=== PATIENT | male | born 1960 | race Caucasian/White ===

== ENCOUNTER 2020-03-24 08:46 | Day surgery (SDC) | payer BC ==
[2020-03-24] MEDS ORDERED: Propofol 200 MG/20 ML SDV IV ONE (08:47)
[2020-03-24] MEDS ORDERED: Midazolam 1 MG/ML 2 ML SDV IV ONE (08:47)
[2020-03-24] MEDS ORDERED: Midazolam 1 MG/ML 2 ML SDV ONE (08:54)
[2020-03-24] MEDS ORDERED: Propofol 200 MG/20 ML SDV ONE (08:54)
[2020-03-24] MEDS ORDERED: Sodium Chloride 0.9% 10 ML Syringe FLUSH PRN (09:00)
[2020-03-24] MEDS ORDERED: Lactated Ringers 1,000 ML IV SCH (09:00)
--- NOTE | 2020-03-24 09:52 | PCM.PN ---
- General Info Date of Service: 03/24/20 - Review of Systems Systems Review Comment:: 59-year-old male here for colonoscopy. His last colonoscopy was about 5 years ago. There is a report that the patient had polyps in the colon at that time. He denies any recent change in bowel pattern or rectal bleeding. I have reviewed his recent history and physical and no significant changes are noted. He is medically stable to proceed today. I have discussed the proposed colonoscopy with the patient. Risks such as but not limited to bleeding and GI injury reviewed. He agrees to proceed. - Patient Data Vitals - Most Recent: Last Vital Signs Temp Pulse 50 L 03/24/20 08:55 Resp 18 03/24/20 08:55 BP 127/75 03/24/20 08:55 Pulse Ox 97 03/24/20 08:55 Weight - Most Recent: 88.451 kg Med Orders - Current: Current Medications Lactated Ringer's (Ringers, Lactated) 1,000 mls @ 50 mls/hr IV ASDIRECTED TAL Sodium Chloride (Saline Flush) 10 ml FLUSH Q8HR PRN PRN Reason: keep vein open Sepsis Event Note - Focused Exam Vital Signs: Vital Signs Pulse Resp BP Pulse Ox 03/24/20 08:55 50 L 18 127/75 97 - Problem List Review Problem List Initiated/Reviewed/Updated: Yes - My Orders Last 24 Hours: My Active Orders 03/23/20 13:19 Resuscitation Status Routine 03/24/20 Breakfast Nothing Per Oral Diet [DIET] 03/24/20 09:00 Peripheral IV Care [RC] . DIRECTED Lactated Ringers [Ringers, Lactated] 1,000 ml IV ASDIRECTED Sodium Chloride 0.9% [Saline Flush] 10 ml FLUSH Q8HR PRN Peripheral IV Insertion Adult [OM.PC] Routine 03/24/20 10:00 Verify Patient Consent Obtain [RC] ASDIRECTED - Assessment Assessment:: History of colon polyps - Plan Plan:: Colonoscopy
--- NOTE | 2020-03-24 10:24 | PCM.OPNOTE ---
- General Post-Op/Procedure Note Date of Surgery/Procedure: 03/24/20 Operative Procedure(s): Colonoscopy with polypectomy Findings: Small Cecal Polyp Moderate Sigmoid Diverticulosis Pre Op Diagnosis: History of colon polyps Post-Op Diagnosis: Colon Polyp. Sigmoid Diverticulosis Anesthesia Technique: MAC Primary Surgeon: Hipolito Weinberg Pathology: Cecal Polyp EBL in mLs: 2 Complications: None Condition: Good
[2020-03-24 10:43] VITALS: BP 104/70; PULSE 53
--- NOTE | 2020-03-24 13:55 | OR ---
DATE OF SURGERY: 03/24/2020 SURGEON: Hipolito Weinberg MD PREOPERATIVE DIAGNOSIS: History of colon polyps. POSTOPERATIVE DIAGNOSIS: Colon polyp and sigmoid diverticulosis. OPERATION PERFORMED: Colonoscopy with polypectomy. INDICATIONS FOR SURGERY: This 59-year-old male has a known history of colon polyps. He comes today for surveillance colonoscopy. FINDINGS: A single small polyp was noted today in the cecum. This was 4 mm in diameter and sessile in configuration. The patient also has a [id number] degree of diverticulosis in the sigmoid region. The diverticula do not appear to be acutely inflamed or otherwise complicated. The remainder of the colon and rectum appear normal. DESCRIPTION OF PROCEDURE: The patient was taken to the operating room. He was given intravenous sedation and with him in the left lateral decubitus position, digital rectal exam was performed showing no rectal masses. The Olympus colonoscope was inserted into the rectum. Retroflexed examination of the rectal canal is performed. The scope was then carefully advanced under direct visualization through the entire length of the colon until the cecum is reached. Cecal acquisition is confirmed by noting normal internal cecal anatomy including the appendiceal orifice and the ileocecal valve. In the cecum, the above- described polyp was identified. It is removed grossly in its entirety with multiple bites of the biopsy forceps. After thoroughly examining the cecum, the scope was slowly withdrawn sequentially re-examining the colonic segments until the entire colon and rectum had been fully examined. The scope was removed and the patient was taken from the operating room in satisfactory condition. ESTIMATED BLOOD LOSS: 2 mL. COMPLICATIONS: None. PROGNOSIS: Good. /[id number]/MODL
== END 2020-03-24 12:00 | disposition home or self-care (01) ==
LOC: KA.SDS 08:46
PROVIDERS: ATTEND Surgery
DX: Z12.11 Encounter for screening for malignant neoplasm of colon (principal); D12.0 Benign neoplasm of cecum; K57.30 Diverticulosis of large intestine without perforation or abscess without bleeding; M77.02 Medial epicondylitis, left elbow; Z86.010 Personal history of colon polyps; Z98.890 Other specified postprocedural states
CPT/HCPCS: 00812; J2250; J2704

== ENCOUNTER 2022-03-08 07:57 | Day surgery (SDC) | payer BC ==
[2022-03-08] MEDS ORDERED: Rocuronium 50 MG/5 ML Vial IV ONE (07:58)
[2022-03-08] MEDS ORDERED: Succinylcholine 200 MG/10 ML MDV IV ONE (07:58)
[2022-03-08] MEDS ORDERED: Glycopyrrolate 0.2 MG/ML SDV IM ONE (07:58)
[2022-03-08] MEDS ORDERED: Ondansetron 4 MG/2 ML SDV IM ONE (07:58)
[2022-03-08] MEDS ORDERED: Lactated Ringers 1,000 ML IV SCH (08:00)
[2022-03-08] MEDS ORDERED: Sodium Chloride 0.9% 10 ML Syringe FLUSH PRN (08:00)
[2022-03-08] MEDS ORDERED: Bupivacaine 0.5%/EPINEPHrine 1:200,000 50 ML MDV ONE (08:26)
[2022-03-08] MEDS ORDERED: ceFAZolin 1 GM Vial ONE ×3 (08:26→09:28)
[2022-03-08] MEDS ORDERED: Dexamethasone 4 MG/ML SDV ONE (08:31)
[2022-03-08] MEDS ORDERED: Propofol 200 MG/20 ML SDV ONE (08:31)
[2022-03-08] MEDS ORDERED: fentaNYL 250 MCG/5 ML SDV ONE (08:31)
[2022-03-08] MEDS ORDERED: Midazolam 1 MG/ML 2 ML SDV ONE (08:31)
[2022-03-08] MEDS ORDERED: Bacitracin/Neomycin/Polymyxin B Oint 0.9 GM U/D Packet ONE ×2 (08:33)
[2022-03-08] MEDS ORDERED: Lactated Ringers 1,000 ML ONE (08:37)
[2022-03-08] MEDS ORDERED: Neostigmine Methylsulfate 10 MG/10 ML MDV ONE (08:37)
[2022-03-08] MEDS ORDERED: Sodium Chloride 0.9% 20 ML SDV ONE (09:28)
[2022-03-08] MEDS ORDERED: Bupivacaine 0.5%/EPINEPHrine 1:200,000 30 ML SDV INFILT ONE (09:28)
[2022-03-08] MEDS ORDERED: Bacitracin/Neomycin/Polymyxin B Oint 0.9 GM U/D Packet TOP ONE (09:28)
[2022-03-08] MEDS ORDERED: Ketorolac 30 MG/ML SDV ONE (11:02)
[2022-03-08 11:50] VITALS: BP 126/71; PULSE 57
== END 2022-03-08 12:10 | disposition home or self-care (01) ==
LOC: KA.SDS 07:57
PROVIDERS: ATTEND Surgery
DX: K40.90 Unilateral inguinal hernia, without obstruction or gangrene, not specified as recurrent (principal); E78.5 Hyperlipidemia, unspecified; Z79.83 Long term (current) use of bisphosphonates; Z98.890 Other specified postprocedural states
CPT/HCPCS: J0330; J0690; J1100; J1885; J2250; J2405; J2704; J2710; J3010; J3490; J7120

== ENCOUNTER 2024-01-13 08:25 | Emergency (ER) | payer BC ==
[2024-01-13] MEDS: Lidocaine 1% 5 ML VIAL INJECT ONE (08:41)
[2024-01-13 08:46] VITALS: BP 138/91; PULSE 77
== END 2024-01-13 09:07 | disposition home or self-care (01) ==
LOC: KA.ED 08:25
DX: S01.81XA Laceration without foreign body of other part of head, initial encounter (principal); Z86.16 Personal history of COVID-19; W22.8XXA Striking against or struck by other objects, initial encounter
CPT/HCPCS: 12014; 99282; 99283; J3490

== ENCOUNTER 2025-06-10 10:05 | Day surgery (SDC) | payer BC ==
[2025-06-10] MEDS ORDERED: Sodium Chloride 0.9% 10 ML Syringe FLUSH PRN (10:15)
[2025-06-10] MEDS: Lactated Ringers 1,000 ML IV SCH (10:25)
[2025-06-10] MEDS ORDERED: Midazolam 1 MG/ML 2 ML SDV ONE (11:22)
[2025-06-10] MEDS ORDERED: Propofol 200 MG/20 ML SDV ONE (11:22)
[2025-06-10 14:10] VITALS: BP 136/80; PULSE 57
== END 2025-06-10 13:06 | disposition home or self-care (01) ==
LOC: KA.SDS 10:05
PROVIDERS: ATTEND Surgery
DX: Z12.11 Encounter for screening for malignant neoplasm of colon (principal); D12.0 Benign neoplasm of cecum; D12.2 Benign neoplasm of ascending colon; D12.3 Benign neoplasm of transverse colon; K57.30 Diverticulosis of large intestine without perforation or abscess without bleeding; Z86.0101 Personal history of adenomatous and serrated colon polyps; Z79.899 Other long term (current) drug therapy
CPT/HCPCS: J2250; J2704; J7120